=== PATIENT | male | born 1970 | race Caucasian/White ===

== ENCOUNTER → 2016-08-16 | Outpatient (CLI) | payer OTHER ==
[~2016-08-16] MED LIST: ASTN; CPR500 PO; FLUO40CA8 PO; FLUT0.15 NAE; LISI10TA PO; PANT40TA PO
[2016-08-16 12:32] LABS: CALCIUM 9.2 mg/dl (8.5-10.1)
[2016-08-16 12:34] LABS: BLOOD UREA NITROGEN 20 mg/dl (7-18); BUN/CREATININE RATIO 20.2 (10-20); CARBON DIOXIDE 26 mmol/L (21-32); CHLORIDE 108 mmol/L (98-107); GLUCOSE 109 mg/dl (70-99); POTASSIUM 4.3 mmol/L (3.5-5.1); SODIUM 141 mmol/L (136-145)
[2016-08-16 13:00] LABS: ESTIMATED AVERAGE GLUCOSE 123 mg/dl; HA1C FLAG Normal (Normal)
--- NOTE | 2016-08-21 12:43 | CODING QUERY MEDICAL NECESSITY ---
SUPPORTING DIAGNOSIS NEEDED A supporting diagnosis is required for the test/procedure performed on this patient in order for us to be reimbursed by the patient's insurance. Please provide a supporting diagnosis for the following test/procedure listed below next to the test name along with your signature. *If there is no additional diagnosis for this patient that would support the following test/procedure please document that below next to the test/procedure. Test(s)/Procedure(s) that require a supporting diagnosis: DOS 08/16 * Hba1c DIAGNOSIS: Provider Signature: Date: Thank you Mary Liu Health Information Management Once completed, please kindly fax back to [phone] For questions please call [phone]
== END | disposition home or self-care (01) ==
LOC: C.LABPVFM 10:39
PROVIDERS: ATTEND Nurse Practitioner
DX: I10 Essential (primary) hypertension (principal); R73.01 Impaired fasting glucose

== ENCOUNTER → 2016-12-24 | Outpatient (CLI) | payer OTHER ==
--- NOTE | 2016-12-24 08:36 | DIAGNOSTIC IMAGING REPORT ---
FUSION CT SINUSES W/O CLINICAL HISTORY: 46 years-old Male presenting with CHRONIC SINUSITIS, history of sinus surgery. TECHNIQUE: Multidetector CT of the sinuses was performed without the use of intravenous contrast. IV contrast: None. A dose lowering technique was used consistent with the principles of ALARA (as low as reasonably achievable). COMPARISON: 06/11/2013. CT DOSE (mGy.cm): The estimated cumulative dose is 743.00 mGy.cm. FINDINGS: Cryptologist topogram: Unremarkable. Postsurgical changes of bilateral uncinectomy, anterior ethmoidectomy, and likely frontal sinusostomies. Frontal nasal recesses patent bilaterally widely patent. Bony nasal septum is midline. A perforation is noted. Conchae bullosa of the right superior turbinate. Extensive mucosal thickening in both maxillary sinuses as well as extensive sclerosis of the maxillary sinus cortes, indicating chronic sinusitis. Skull base and lamina papyracea intact. Orbits normal. No dehiscence of the optic canals or carotid canals. Limited intracranial evaluation within normal limits. Remaining soft tissues of the face normal. Upper cervical spine normal. IMPRESSION: Postsurgical changes from prior functional endoscopic sinus surgery. Changes consistent with chronic sinusitis. Electronically signed by: Eren Marin M.D. 12/24/2016 8:34 AM Dictated Date/Time: 12/24/2016 8:21 AM
== END | disposition home or self-care (01) ==
LOC: C.CTS 07:56
DX: J32.9 Chronic sinusitis, unspecified (principal)

== ENCOUNTER → 2017-04-03 | Outpatient (CLI) | payer OTHER ==
[2017-04-03 18:03] LABS: ALT/SGPT 53 U/L (12-78); BLOOD UREA NITROGEN 17 mg/dl (7-18); BUN/CREATININE RATIO 14.5 (10-20); CALCIUM 8.9 mg/dl (8.5-10.1); CARBON DIOXIDE 29 mmol/L (21-32); CHLORIDE 107 mmol/L (98-107); CREATININE 1.19 mg/dl (0.60-1.40); GLUCOSE 95 mg/dl (70-99); POTASSIUM 4.4 mmol/L (3.5-5.1); SODIUM 139 mmol/L (136-145)
[2017-04-03 18:06] LABS: ALB/GLOB RATIO 0.9 (0.9-2); ALKALINE PHOSPHATASE 81 U/L (45-117); AST/SGOT 26 U/L (15-37)
[2017-04-04 06:49] LABS: ESTIMATED AVERAGE GLUCOSE 123 mg/dl; HA1C FLAG Normal (Normal)
== END | disposition home or self-care (01) ==
LOC: C.LABPVFM 12:00
PROVIDERS: ATTEND Family Medicine
DX: R73.01 Impaired fasting glucose (principal); I10 Essential (primary) hypertension

== ENCOUNTER → 2017-08-08 | Outpatient (CLI) | payer OTHER | END | disposition home or self-care (01) | LOC: C.LABPVFM 08:53 | PROVIDERS: ATTEND Nurse Practitioner | DX: I10 Essential (primary) hypertension (principal) ==

== ENCOUNTER → 2017-11-13 | Outpatient (CLI) | payer OTHER ==
--- NOTE | 2017-11-13 11:46 | DIAGNOSTIC IMAGING REPORT ---
RIGHT SHOULDER 3 VIEWS HISTORY: Right shoulder paresthesias. COMPARISON: None. FINDINGS: There is no fracture or dislocation. Soft tissues are unremarkable. The right clavicle is intact. Minimal joint space narrowing at the AC joint. There are small osteophytes at the distal clavicle. IMPRESSION: No fractures. Mild AC joint arthrosis. Electronically signed by: Jose Grande M.D. 11/13/2017 11:45 AM Dictated Date/Time: 11/13/2017 11:44 AM
== END | disposition home or self-care (01) ==
LOC: C.RADPV 11:30
PROVIDERS: ATTEND Neuromusculoskeletal Medicine & OMM
DX: M54.9 Dorsalgia, unspecified (principal)

== ENCOUNTER 2025-03-22 07:05 | Observation (INO) ==
--- NOTE | 2025-02-21 12:38 | PAT Medication Instructions ---
Medication Instructions Date of Service February 21, 2025 Home Medications Medication Instructions Recorded glucose 4 gram chewable tablet 4 g PO Q15M PRN hypoglycemia #30 05/13/22 tabs lisinopril 10 mg tablet 10 mg PO QPM #90 tabs 05/04/24 pantoprazole 40 mg tablet,delayed 40 mg PO BID GERD #60 tabs 10/08/24 release tamsulosin 0.4 mg capsule (Flomax) 0.4 mg PO QPM #90 caps 11/10/24 diclofenac sodium 75 mg 75 mg PO BID PRN Pain #60 tabs 12/24/24 tablet,delayed release lorazepam 0.5 mg tablet (Ativan) 0.25 - 0.5 mg PO Q24H PRN fexofenadine 180 mg tablet (Flory Allergy) 180 mg PO QAM PRN fluoxetine 20 mg capsule (Prozac) 60 mg PO QAM glucose 4 gram chewable tablet 4 g PO Q15M PRN multivitamin 1 tab PO QPM cholecalciferol (vitamin D3) 25 mcg (1,000 unit) tablet (Vitamin D3) 75 mcg PO QPM lisinopril 10 mg tablet 10 mg PO QPM pantoprazole 40 mg tablet,delayed release 40 mg PO BID cranberry fruit concentrate 250 mg chewable tablet (Azo Cranberry) 500 mg PO QPM mupirocin 2 % topical ointment 1 applic topical UD PRN zinc acetate 50 mg (zinc) capsule (Galzin) 50 mg PO QPM tamsulosin 0.4 mg capsule (Flomax) 0.4 mg PO QPM diclofenac sodium 75 mg tablet,delayed release 75 mg PO BID PRN dutasteride 0.5 mg capsule 0.5 mg PO HS famotidine 40 mg tablet 40 mg PO BID PRN gabapentin 300 mg capsule 300 - 600 mg PO UD triamcinolone acetonide 0.1 % lotion 1 applic topical BID PRN Continue as directed glucose 4 gram chewable tablet 4 g PO Q15M PRN(if needed) gabapentin 300 mg capsule 300 - 600 mg PO UD ASK your surgeon for instructions diclofenac sodium 75 mg tablet,delayed release 75 mg PO BID PRN STOP taking 24 hours before surgery mupirocin 2 % topical ointment 1 applic topical UD PRN triamcinolone acetonide 0.1 % lotion 1 applic topical BID PRN DO NOT take the morning of surgery fexofenadine 180 mg tablet (Flory Allergy) 180 mg PO QAM PRN glucose 4 gram chewable tablet 4 g PO Q15M PRN Take morning of surgery With a small sip of water, OTHERWISE NOTHING TO EAT OR DRINK AFTER MIDNIGHT: lorazepam 0.5 mg tablet (Ativan) 0.25 - 0.5 mg PO Q24H PRN(if needed) fluoxetine 20 mg capsule (Prozac) 60 mg PO QAM pantoprazole 40 mg tablet,delayed release 40 mg PO BID famotidine 40 mg tablet 40 mg PO BID PRN(if needed) Take evening before surgery lorazepam 0.5 mg tablet (Ativan) 0.25 - 0.5 mg PO Q24H PRN(if needed) multivitamin 1 tab PO QPM cholecalciferol (vitamin D3) 25 mcg (1,000 unit) tablet (Vitamin D3) 75 mcg PO QPM lisinopril 10 mg tablet 10 mg PO QPM pantoprazole 40 mg tablet,delayed release 40 mg PO BID cranberry fruit concentrate 250 mg chewable tablet (Azo Cranberry) 500 mg PO QPM zinc acetate 50 mg (zinc) capsule (Galzin) 50 mg PO QPM tamsulosin 0.4 mg capsule (Flomax) 0.4 mg PO QPM dutasteride 0.5 mg capsule 0.5 mg PO HS famotidine 40 mg tablet 40 mg PO BID PRN(if needed) Other Notes If you have any questions please call us at [phone] or [phone] or [phone] or [phone]
--- NOTE | 2025-02-25 09:24 | Anesthesiology Consultation ---
Date of Service February 25, 2025 Assessment & Plan (1) Encounter for pre-operative examination: - PCP clearance 02/28/25 [place]: "...Scheduled for right RKA 03/22/2025 for degenerative disease of the right knee. Physical examination did reveal trace BLE edema which is likely gravity dependent. Patient was fitted with compression stockings previously advised to wear throughout the day. Otherwise no evidence of CHF on physical examination. Metabolic screening reviewed. Patient is within acceptable medical risk for his procedure scheduled on 03/22/2025..." - anesthesia complication history 12/2023 "Anesthesia damaged the right side of vocal cords when intubating for surgery" Patient reports dysphonia/dysphagia 6 months post-op. s/p nasal septoplasty w/bilateral inferior turbinate reduction: MAC#4 > Glidescope#4, [facility], [facility] (12/30/23). No issues noted per post-op anesthesia progress note. We had a detailed discussion on neuraxial vs general anesthesia. He expressed comfort with either plan, is just very hopeful to not have some issues after intubation if this is deemed necessary. He expressed appreciation for discussion and denied additional questions or concerns. This was discussed in detail with Dr. Morales who advised nothing additional is needed. - 03/03 epidural steroid injection with MS pain management. Dr. Murphy advised this is an acceptable interval from epidural steroid injection to planned neuraxial anesthesia. - Outpatient joint assessment: Patient is currently scheduled for inpatient pathway. If re-evaluated and patient/surgeon requests outpatient pathway, patient is not a candidate for outpatient joint program. Chart Review Chart Review: Acceptable Risk for Surgery and Patient seen in Pre Admission Testing Teaching & Discussion Pre-Anesthesia Teaching/Discussion Notes: Instructed NPO after midnight before surgery, except medications with 15 cc of water. Medication instructions provided according to the PAT guidelines. History Surgery Operation Date: 03/22/25 08:50 Proposed Procedures p Right Total Knee Arthroplasty - Lobo De La Vega MD Height/Weight Height: 5 ft 10 in Weight: 155.9 kg Allergies Allergy/AdvReac Type Severity Reaction Status Date / Time No Known Drug Allergies Allergy Verified 02/28/25 10:32 Medications Home Medications Medication Instructions Recorded Confirmed Last Taken lorazepam 0.5 mg tablet (Ativan) 0.25 - 0.5 mg PO Q24H PRN severe 11/26/19 02/28/25 06/26/22 22:00 anxiety fexofenadine 180 mg tablet 180 mg PO QAM PRN allergies 12/18/20 02/28/25 12/23/23 (Flory Allergy) fluoxetine 20 mg capsule (Prozac) 60 mg PO QAM 03/30/21 02/28/25 12/30/23 06:30 glucose 4 gram chewable tablet 4 g PO Q15M PRN hypoglycemia #30 05/13/22 02/28/25 Unknown tabs multivitamin 1 tab PO QPM 05/26/23 02/28/25 12/26/23 cholecalciferol (vitamin D3) 25 75 mcg PO QPM 06/22/23 02/28/25 12/27/23 mcg (1,000 unit) tablet (Vitamin D3) lisinopril 10 mg tablet 10 mg PO QPM #90 tabs 05/04/24 02/28/25 Unknown pantoprazole 40 mg tablet,delayed 40 mg PO BID GERD #60 tabs 10/08/24 02/28/25 Unknown release cranberry fruit concentrate 250 mg 500 mg PO QPM 11/02/24 02/28/25 Unknown chewable tablet (Azo Cranberry) mupirocin 2 % topical ointment 1 applic topical UD PRN nose 11/02/24 02/28/25 Unknown irritation zinc acetate 50 mg (zinc) capsule 50 mg PO QPM 11/02/24 02/28/25 Unknown (Galzin) tamsulosin 0.4 mg capsule (Flomax) 0.4 mg PO QPM #90 caps 11/10/24 02/28/25 Unknown diclofenac sodium 75 mg 75 mg PO BID PRN Pain #60 tabs 12/24/24 02/28/25 Unknown tablet,delayed release dutasteride 0.5 mg capsule 0.5 mg PO HS 02/21/25 02/28/25 Unknown famotidine 40 mg tablet 40 mg PO BID PRN GERD 02/21/25 02/28/25 Unknown gabapentin 300 mg capsule 300 - 600 mg PO UD 02/21/25 02/28/25 Unknown triamcinolone acetonide 0.1 % 1 applic topical BID PRN Skin 02/21/25 02/28/25 Unknown lotion Irritation Past Medical History Medical History Abdominal bloating Anxiety BPH (benign prostatic hyperplasia) Cervical radiculopathy Chronic low back pain Degenerative disc disease Degenerative joint disease Difficult intubation Dysphonia Gastroparesis GERD (gastroesophageal reflux disease) History of COVID-19 (~2023) History of ileus (~2015) History of palpitations History of tachycardia HLD (hyperlipidemia) HTN (hypertension) Lumbar disc herniation Lumbar spondylosis Lumbosacral radiculopathy Narcolepsy Peripheral edema Peripheral neuropathy Prediabetes Sleep apnea Vasovagal episode Patient denies h/o stroke, seizures, heart attack, heart failure, blood clots/DVTs or blood transfusions. Exercise / Class Metabolic Activity II 4-5 Yardwork/Stairs/Walk up hill (denies chest discomfort or shortness of breath walking up one flight of stairs) Past Family History Family History Unknown Obstructive sleep apnea Diabetes Myocardial infarction Grandmother Coronary arteriosclerosis Asthma Aunt Hypertension Coronary arteriosclerosis Mother Skin cancer Hearing loss Breast cancer Hypertension PONV (postoperative nausea and vomiting) Sister Accidental drug overdose Other Heart disease No family history of bleeding disorder Past Surgical History Surgical History History of anesthesia complications History of colonoscopy History of esophagogastroduodenoscopy (EGD) History of nasal septoplasty History of sinus surgery History of surgery History of uvulopalatopharyngoplasty Hx of cholecystectomy Hx of tonsillectomy S/P surgical removal of pilonidal cyst (12/08/19) Past Anesthesia History Other (12/2023 "Anesthesia damaged the right side of vocal cords when intubating for surgery" dysphonia/dysphagia for 6 months post-op; mother with PONV) History of PONV No Hx of PONV and No Hx of Motion Sickness Social History Smoking Status: Never smoker Do You Dip or Chew Tobacco: No Hx Alcohol Use: Yes Alcohol type: beer, wine and hard liquor alcohol intake frequency: holidays/special occasions only Hx Substance Use: No substance use type: does not use Review of Systems Patient denies chest pain, shortness of breath, dyspnea on exertion, fever, chills, cough, wheezing, or palpitations. Physical Exam Vital Signs Vitals BP 121/63 P 59 TEMP 98.3 SP02 95% on RA RESP 18 Physical Patient resting comfortably in chair in no acute distress, alert and oriented, responding appropriately throughout visit Short, thick neck Full cervical extension range of motion without pain TMD 3 finger breadths Mallampati Score 3 Dentition: several crowns, denies chipped or loose teeth, caps, implants or bridges Lungs: normal respiratory effort. Good air movement, clear throughout to auscultation, no adventitious breath sounds Cardiac: regular rate and rhythm, no murmurs noted Carotid arteries: negative bruit bilat Lab Results Anesthesia Preop Results Results Anesthesia Widget: WBC 5.91 K/ul (4.8-10.8) 02/25/25 Hgb 14.8 g/dl (14.0-18.0) 02/25/25 Hct 44.2 % (42.0-52.0) 02/25/25 Plt 211 K/uL (130-400) 02/25/25 Na 139 mmol/L (136-145) 02/25/25 K 4.8 mmol/L (3.5-5.1) 02/25/25 Cl 103 mmol/L (98-107) 02/25/25 CO2 30 mmol/L (21-32) 02/25/25 BUN 21 mg/dl (6-23) 02/25/25 Creat 1.10 mg/dl (0.6-1.4) 02/25/25 Glucose Level 95 mg/dl (70-99(Fasting)) 02/25/25 PT 11.0 Seconds (9.0-12.0) 02/25/25 PTT 29 Seconds (21-31) 02/25/25 INR 1.0 (0.9-1.1) 02/25/25 HA1c 5.6 % (4.5-5.6) 02/25/25 Urine Color Yellow 02/25/25 Urine Appearance Clear (Clear) 02/25/25 Urine pH 6.5 (4.5-7.5) 02/25/25 Urine Specific [place] 1.017 (1.000-1.030) 02/25/25 Urine Protein Negative (Negative) 02/25/25 Urine Glucose (UA) Negative (Negative) 02/25/25 Urine Ketones Negative (Negative) 02/25/25 Urine Blood Negative (Negative) 02/25/25 Urine Nitrite Negative (Negative) 02/25/25 Urine Bilirubin Negative (Negative) 02/25/25 Urine Urobilinogen Negative (Negative) 02/25/25 Urine Leukocyte Esterase Negative (Negative) 02/25/25 Blood Type O Positive 02/25/25 Antibody Screen NEGATIVE 02/25/25 Testing Electrocardiogram Date: 02/25/25 Sinus rhythm with sinus arrhythmia with 1st degree AV block, rate 60 bpm Echocardiogram Date: 05/11/21 EF 60-65% No regional wall motion abnormalities Mild cLVH No significant diastolic dysfunction No significant valvular stenosis/regurgitation Cervical Spine MRI 08/25/24 [id number] multilevel degenerative disc disease with loss of disc height and disc desiccation seen diffusely throughout the cervical spine. Vertebral heights are preserved. No malalignments No high-grade canal stenosis or disc herniation Disc-osteophyte complex formation with multilevel foraminal narrowing as above, severe on the LEFT at C3-4 level, moderate on the RIGHT at C4-5 level No STIR signal abnormality to suggest bone marrow edema, soft tissue or ligamentous injury X-ray 06/18/24 1. Straightening and reversal of the cervical lordosis. This may be positional or reflect an element of myospasm. 2. Mild cervical degenerative spondylosis. 3. No fracture or dislocation noted. Other Testing Lumbar spine MRI 11/22/24 Note is made of a transitional vertebra at the lumbosacral junction which is designated as L5 for purposes of numbering on this exam. L5 is partially sacralized. The L5-S1 level is assigned to image 30-35. Vertebral body heights are maintained. There is mild lumbar spine levoscoliosis. There are no lumbar spine fractures. There is no intracanalicular mass or fluid collection. The conus terminates at the T12-L1 level. L1-2: There is mild disc space narrowing with disc bulge, mild facet arthrosis and ligamentous hypertrophy. There is mild narrowing of the central canal. The neural foramen are patent. L2-3: There is mild disc space narrowing with disc bulge. There is moderate facet arthrosis. Mild central canal stenosis is present. The neural foramen are patent. L3-4: There is disc space narrowing with moderate-sized disc bulge, moderate facet arthrosis and ligamentous hypertrophy mild to moderate central canal stenosis is similar to previous MRI. Patent AP diameter of the canal is 8 mm. Moderate right and mild left neural foraminal stenosis is unchanged. L4-5: There is mild disc space narrowing. A 1.9 x 0.9 x 1.1 cm right paracentral disc extrusion with inferior subligamentous migration has increased since previous MRI. This results in mild narrowing of the central canal and severe narrowing of the right lateral recess. There is moderate facet arthrosis at this level. The right neural foramen is patent. Mild left neural foraminal stenosis. L5-S1: The central canal and neural foramen are patent. IMPRESSION: 1. 1.9 x 0.9 x 1.1 cm right paracentral disc extrusion with inferior subligamentous migration at L4-L5 which has increased since previous MRI. This results in severe narrowing of the right lateral recess and could be correlated with right L5 radiculopathy. 2. No additional disc herniations. Multilevel disc bulges, as described above. 3. Mild to moderate multilevel central canal stenosis. 4. Transitional vertebra at the lumbosacral junction. Please see above numbering scheme of the lumbar spine. Soft tissue neck CT 05/06/24 1. Unremarkable appearance of the glottis and subglottic airway. 2. No acute inflammatory changes, mass lesions or fluid collections. 3. No lymphadenopathy. Chest CT 05/06/24 Unremarkable exam.
[~2025-03-22 07:05] MED LIST changes: -ASTN; +BUPIVACAINE 0.5 % 5 MG/1 ML PF 10ML VIAL ONE; -CPR500 PO; -FLUO40CA8 PO; -FLUT0.15 NAE; -LISI10TA PO; -PANT40TA PO; +ROPIVACAINE 0.5% 5 MG/ML 30 ML VIAL ONE
[2025-03-22] MEDS: CeleBREX 200 MG CAP PO SCH (07:53)
[2025-03-22] MEDS: FAMOTIDINE 20 MG TAB PO SCH (07:53)
[2025-03-22] MEDS: ACETAMINOPHEN 500 MG TAB PO SCH ×2 (07:53→14:57)
[2025-03-22] MEDS: LR 500ML BOLUS, THEN 15ML/HR IV SCH (07:53)
[2025-03-22] MEDS ORDERED: MIDAZOLAM HCL 1 MG/ML 2ML VIAL ONE ×2 (07:53→08:43)
[2025-03-22] MEDS: METOCLOPRAMIDE HCL 10 MG TABLET PO SCH (07:53)
[2025-03-22] MEDS: LR 60ML/HR IV SCH (07:54)
[2025-03-22] MEDS: dexAMETHasone**PF** 10 MG/ML VIAL IV SCH (07:54)
[2025-03-22] MEDS ORDERED: PROPOFOL IV EMULSION 10 MG/ML 20 ML VIAL IV ONE ×7 (07:55→11:19)
[2025-03-22] MEDS ORDERED: ATROPINE SULFATE 0.1 MG/ML 10ML SYR IV PRN (08:28)
[2025-03-22] MEDS ORDERED: ONDANSETRON INJ 2 MG/ML 2 ML VIAL IV PRN ×2 (08:28→13:01)
[2025-03-22] MEDS ORDERED: PROMETHAZINE HCL 6.25 MG in SODIUM CHLORIDE 0.9% 50 ML IV PRN (08:28)
[2025-03-22] MEDS ORDERED: HYDROmorphone INJ 2 MG/ML SYR/VIAL IV PRN (08:28)
--- NOTE | 2025-03-22 08:57 | History & Physical Bridge Note ---
Date of Service March 22, 2025 History & Physical Bridge Note I have examined the patient, reviewed the History & Physical and in the interval since the performance of the History & Physical I have noted the following changes of clinical significance: no changes noted
[2025-03-22] MEDS: ceFAZolin 3000MG 3,000 MG/72.5 ML BAG IV SCH (09:22)
[2025-03-22] MEDS ORDERED: PHENYLEPHRINE 100MCG/ML 5ML SYR ONE (09:31)
[2025-03-22] MEDS ORDERED: ONDANSETRON INJ 2 MG/ML 2 ML VIAL ONE (09:47)
[2025-03-22] MEDS: ROPIV 0.5% 246mg, Ketorolac 30mg, EPINEPHrine 0.5mg in NSS INFIL SCH (09:59)
[2025-03-22] MEDS: ORTHO JOINT ANESTHETIC ONE (10:00)
[2025-03-22] MEDS ORDERED: KETAMINE HCL 10MG/ML SYR ONE (10:20)
[2025-03-22] MEDS: VANCOMYCIN HCL 1000MG/20ML VIAL ONE (10:30)
--- NOTE | 2025-03-22 12:14 | Operative Report ---
PG Post Operative Report Pre & Post Diagnosis Operation Date: 03/22/25 08:55 Pre-Op Diagnosis: Right Knee Degenerative Joint Disease Post-Op Diagnosis: Right Knee Degenerative Joint Disease I identified the patient and participated in the time-out.: Yes Procedure Operation Date: 03/22/25 08:55 Actual Procedures p Right Total Knee Arthroplasty(Right) - Lobo De La Vega MD Surgeon Lobo De La Vega MD Bracelet Maker Novelty Kalpesh Rice PA-C Estimated Blood Loss 100 Findings Consistent with Post-Op Diagnosis Specimens Right knee sent for pathology Anesthesia Type Spinal MAC Complications none Disposition Accompanied Patient To Recovery: No Indications Patient is a 54-year-old very large morbidly obese gentleman whose had a long history of gradually progressive increasing right knee pain discomfort has gotten worse over time. Failed all conservative measures. X-rays show advanced knee arthritis. He has been scheduled for knee replacement in the past but had to cancel due to some urological issues. These issues have been cleared up and now he is elected to proceed with total knee arthroplasty. Due to his large size we did use a tibial stem to maximize the likelihood of improving the long Jevity of his operation implants. Description of Procedure Operative implants consist of: 1 Biomet Vanguard size 75 right posterior stabilized femoral component. 2. Biomet size 79 tibial tray with a 15 mm x 80 mm stem with a 2.5 mm offset and small cruciate wing. 3. 10 mm Po stabilized polyethylene insert. 4. 34 x 8-1/2 all poly patella. The patient was taken the op room, identified, placed on the operating table in the supine position. All contact areas were appropriately padded. IV antibiotics provided by anesthesia team. A spinal anesthetic had been implemented holding area. Right thigh tourniquet was then placed. The right lower extremity is then prepped and draped in usual sterile fashion. The right leg was elevated exsanguinated with use of an Esmarch and a tourniquet placed at 350 mmHg. An anterior approach of the right knee was then performed to a longitudinal incision centered over the patella. Sharp dissection was Through subcutaneous tissue down to the extensor mechanism. A medial parapatellar arthrotomy incision was made. Some subperiosteal dissection was carried out medially. The fat pad was resected from the patella tendon. The lateral patellofemoral ligament was released. Patella subluxated laterally the knee was flexed. The osteophytes taken of distal femur. ACL and PCL were then released from distal femur and the tibia subluxated anteriorly. The intercondylar eminence/tibial eminence was then resected. The tibial IM canal was entered and dilated up to a 15. The IM crystal was left in place and the proximal tibial was cut with intramedullary guide. 2 mm of bone from were taken for the most deficient aspect medial side. We then sized the tibia and sized to a 79. This is can be a little bit undersized but I felt this necessary to get the appropriate rotation. Attention then drawn to the femur. The distal femur was entered with a sharp drill. Intramedullary canal was suction. A right 6 degree valgus cutting guide was placed. The distal femoral cut was made to take an additional 5 mm of bone off distal femur. The femur was then sized to a size 75. The AP cutting block was pinned parallel to the epicondylar axis which was 5 degrees of external rotation. The anterior cut, anterior chamfer, posterior cut, posterior chamfer cuts were made. The box cutting guide was placed and just slight lateral and the box cut was made. The knee was flexed. The remnants of the medial and lateral menisci were excised. The osteophytes taken off the posterior aspect of the femur. A trial femoral component was placed. The tibial tray was then pinned and we sized this. We then prepared this for a 15 x 80 mm stem with a 2.5 mm offset. The tibial tray was assembled and fit nicely. We trialed the knee and the 10 mm insert fit most appropriately. Attention drawn the patella. The patella was cleaned of all soft tissues. Patella thickness measured about 22 mm in thickness was cut down to 15. Was sized to a size 34 patella. The lug holes were drilled for the 34 patella. Lateral osteophytes removed. Patella button was placed. Knee was taken through range of motion patella tracked nicely with no thumbs test. Attention jointer placed in permanent components. All trial components were removed. Bone plug was placed into distal femur limit blood loss. Double batch [place] G cement was mixed. I did add an additional gram of vancomycin due to his large size and history of diabetes and morbid obesity. A BiomMTEM Limited size 75 right posterior stabilized femoral component, size 79 tibial tray with a 80 x 15 mm stem and 2.5 mm offset and small cruciate wing, a 10 mm posterior stabilized insert, and a 34 x 8 all-poly patella then cemented in place. The knee was brought out into full extension till cement hardened. Final cement check was then performed. Pericapsular tissues were injected with total 100 cc of Ortho mix. The patient did receive 1 g tranexamic acid. The tourniquet was then let down for final tourniquet time 96 minutes. Hemostasis assured use electrocautery. Extensor Meclomen closed with combination of 1 PDS suture and a 1 Vicryl suture in a [id number] fashion. Extensor Meclomen checked found be intact. Subcutaneous tissue then closed with 2 Dexon suture in a buried interrupted fashion skin was closed skin cnythia. Leg was then cleaned and dried and a sterile dressing with Xeroform, 4 fours, sterile cast padding, Herbert bandage were applied. Patient then transferred to the recovery room in stable condition. Patient tolerated the procedure well and no complications. Kalpesh Rice, my physician training assistant, was present for the entire procedure. His assistance was essential and required for appropriate patient positioning, prepping and draping, surgical exposure, performing the technical details of the operation, placement the implants, closure of the wound, and placement of the sterile bandage. I attest to the content of the Intraoperative Record and any orders documented therein. Any exceptions are noted below.
--- NOTE | 2025-03-22 12:39 | XRay Report ---
XR knee RT 1 or 2V routine CLINICAL HISTORY: Surgical Post Op COMPARISON: None FINDINGS: Right knee prosthesis shows no hardware complication. There is expected soft tissue gas. S kin cynthia are present. IMPRESSION: Unremarkable postoperative exam. ACT 112: Negative or not required by law. Electronically signed by: Pete Molina M.D. 03/22/2025 12:38 PM
--- NOTE | 2025-03-22 12:41 | Anesthesiology Progress Note ---
Date of Service March 22, 2025 Anesthesia Post Procedure Vital Signs Vital Signs: Temp Pulse Pulse Resp BP Pulse Ox O2 Del Method 03/22/25 12:30 77 20 117/63 92 Room Air 03/22/25 12:20 73 14 115/57 L 98 Room Air 03/22/25 12:10 88 14 119/81 98 Room Air 03/22/25 12:02 36.4 C L 88 18 125/86 98 Room Air 03/22/25 07:22 Room Air, BiPAP 03/22/25 07:22 36.7 C 65 20 117/74 98 Room Air, BiPAP Pain Intensity Right Knee: Pain Intensity: 0 Transfer of Care Handoff Completed per policy Notes Mental Status: alert / awake / arousable and participated in evaluation Patient Amnestic to Procedure: Yes Nausea / Vomiting: adequately controlled Pain: adequately controlled Airway Patency, RR, SpO2: stable & adequate BP & HR: stable & adequate Hydration State: stable & adequate Neuraxial Anesthesia: was administered and sensory block is resolving Anesthetic Complications: no major complications apparent
[2025-03-22] MEDS ORDERED: GLUCAGON FOR INJ 1 MG VIAL SQ PRN (13:01)
[2025-03-22] MEDS ORDERED: MAGNESIUM HYDROXIDE SUSP 30 ML UDC PO PRN (13:01)
[2025-03-22] MEDS ORDERED: FAMOTIDINE 40 MG TABLET PO PRN (13:01)
[2025-03-22] MEDS ORDERED: ALUMINUM/MAGNESIUM SUSP 30 ML UDC PO PRN (13:01)
[2025-03-22] MEDS ORDERED: LORazepam 0.5 MG TAB PO PRN (13:01)
[2025-03-22] MEDS ORDERED: MUPIROCIN 2% OINT 22 GM TUBE TOP PRN (13:01)
[2025-03-22] MEDS ORDERED: diphenhydrAMINE 50 MG/ML VIAL IV PRN (13:01)
[2025-03-22] MEDS ORDERED: METOCLOPRAMIDE HCL INJ 5 MG/ML 2 ML VIAL IV PRN (13:01)
[2025-03-22] MEDS ORDERED: GLUCOSE 10 TAB/TUBE PO PRN ×3 (13:01→14:15)
[2025-03-22] MEDS ORDERED: PHARMACY GLYCEMIC MGMT CONSULT PRN (13:01)
[2025-03-22] MEDS ORDERED: DEXTROSE 50% 50 ML SYRINGE IV PRN (13:01)
[2025-03-22] MEDS ORDERED: NALOXONE HCL 0.4 MG/1 ML VIAL/CARP IV PRN (13:01)
[2025-03-22] MEDS ORDERED: GLUCOSE 40% GEL 15 GM TUBE PO PRN (13:01)
[2025-03-22] MEDS ORDERED: HYDROmorphone INJ 0.5 MG/0.5 ML SYR IV PRN (13:01)
[2025-03-22] MEDS ORDERED: diphenhydrAMINE Capsule 25 MG CAP PO PRN (13:01)
[2025-03-22] MEDS ORDERED: CARBOHYDRATES FOR HYPOGLYCEMIA PO PRN (13:01)
[2025-03-22] MEDS ORDERED: FEXOFENADINE HCL 180 MG TAB PO PRN (13:01)
[2025-03-22] MEDS: SODIUM CHLORIDE 0.9% 1,000 ML IV SCH (13:53)
[2025-03-22] MEDS: KETOROLAC 30 MG/ML VIAL IV SCH (14:08)
[2025-03-22] MEDS ORDERED: BETAMETHASONE VAL 0.1% CR 15 GM TOP PRN (14:08)
[2025-03-22] MEDS: GABAPENTIN 300 MG CAP PO SCH (14:58)
[2025-03-22] MEDS: INSULIN ASPART PER UNIT CHARGE SC SCH (16:55)
[2025-03-22] MEDS: ASCORBIC ACID 500 MG TAB PO SCH (17:02)
[2025-03-22] MEDS: TRANEXAMIC ACID / 0.7% NACL 1,000 MG/100 ML BAG IV SCH (18:05)
[2025-03-22] MEDS: SENNA 8.6 MG TAB PO SCH (21:10)
[2025-03-22] MEDS: DOCUSATE SODIUM 100 MG CAP PO SCH (21:10)
[2025-03-22] MEDS: ASPIRIN 81 MG ECTAB PO SCH (21:11)
[2025-03-22] MEDS: CHOLECALCIFEROL 25 MCG (1000 UNITS) TAB PO SCH (21:11)
[2025-03-22] MEDS: FINASTERIDE 5 MG TAB PO SCH (21:12)
[2025-03-22] MEDS: TAMSULOSIN HCL 0.4 MG CAP PO SCH (21:13)
[2025-03-22] MEDS: ZINC SULFATE 220 MG CAPSULE PO SCH (22:03)
[2025-03-22] MEDS: GABAPENTIN 600 MG TAB PO SCH (22:03)
[2025-03-23 07:14] LABS: Hematocrit (blood only) 36.9 % (42.0-52.0); Hemoglobin 12.3 g/dL (14.0-18.0); Mean Corpuscular Hemoglobin 29.8 pg (25.0-34.0); Mean Corpuscular Volume 89.3 fL (80.0-100.0); Platelet Count 162 K/uL (130-400); RDW Standard Deviation 43.9 fL (36.4-46.3); Red Blood Count 4.13 M/uL (4.70-6.10); White Blood Count 9.92 K/ul (4.8-10.8)
[2025-03-23] MEDS: dexAMETHasone 10 MG in SYRINGE 0 ML IV SCH (07:31)
[2025-03-23] MEDS: MULTIVITAMIN TAB PO SCH (07:32)
[2025-03-23 07:39] LABS: Anion Gap 5.0 (3-11); Blood Urea Nitrogen 19.0 mg/dl (6-23); Calcium 8.2 mg/dl (8.6-10.3); Carbon Dioxide 26.0 mmol/L (21-32); Chloride 108.0 mmol/L (98-107); Creatinine Clr Calc Pharmacy 128.7 ml/min; Glucose 125.0 mg/dl (70-99(Fasting)); Potassium 4.1 mmol/L (3.5-5.1); Sodium 139.0 mmol/L (136-145)
[2025-03-23 08:07] VITALS: BP 154/84; PULSE 77; RESP 18; TEMP 98.1; O2SAT 98
--- NOTE | 2025-03-23 08:40 | Orthopedic Progress Note ---
Date of Service March 23, 2025 Assessment & Plan (1) Status post total right knee replacement: * Continue Current Treatment * Disposition: home * Daily treatment: Physical Therapy/ Occupational Therapy per protocol * Weight bearing status: WBAT * Continue to monitor for ABLA * Pain control * DVT prophylaxis, ASA * Office/hospital f/u 2 weeks for progress check and staple/suture removal * Plan for discharge today pending PT/OT clearance Subjective . Active Problems: S/p right TKA POD 1 54 y/o male s/p right TKA. Doing well overall, pain managed and improved function. Denies fever/chills, chest pain/SOB, nausea/vomiting. Otherwise no complaints. Review of Systems All systems reviewed & are unremarkable except as noted in HPI & below. Physical Exam . * General: Alert and oriented, no acute distress * Constitutional: well-developed, well-nourished. * Respiratory: Normal respiratory effort, no distress * Gastrointestinal: No tenderness to palpation, no rigidity or guarding. * Skin: No rash or lesion. * Neurologic: Grossly normal * Musculoskeletal: right knee surgical dressing CDI, not removed for exam. Otherwise no obvious deformity or overlying skin changes RLE. Diffuse TTP distal thigh and knee region. Otherwise no specific tenderness of proximal thigh, lower leg, foot/ankle. AROM knee flexion 95 degrees. AROM foot/ankle intact. Sensation intact plantar/dorsal foot. Brisk capillary refill. Results & Data Results & Data Laboratory Results . Diagnostic Findings . Knee X-Ray 03/22/25 12:07 XR knee RT 1 or 2V routine CLINICAL HISTORY: Surgical Post Op COMPARISON: None FINDINGS: Right knee prosthesis shows no hardware complication. There is expected soft tissue gas. Skin cynthia are present. IMPRESSION: Unremarkable postoperative exam. ACT 112: Negative or not required by law. Electronically signed by: Pete Molina M.D. 03/22/2025 12:38 PM PG Care Time/CCT Total # of Minutes Spent Total Time Spent with Patient: Total time spent is greater than 50% in coordination of care (as documented) at patient's floor/unit and/or counseling patient: Coding Level of Care Code 24761 Post Operative Follow-Up Diagnoses Status post total right knee replacement Z96.651
== END 2025-03-23 11:43 | disposition home health service (06) ==
LOC: ASU 07:05 → 3E 07:05